=== PATIENT | male | born 1990 | race Caucasian/White ===

== ENCOUNTER 2017-08-23 11:49 | Emergency (ER) | payer OTHER ==
[~2017-08-23] VITALS: Ht 180.3 cm; Wt 97.6 kg
[~2017-08-23 11:49] MED LIST: CIPR-249 PO; FLAG250T PO; PEPT262S PO; TUMS500C PO
[2017-08-23 12:00] VITALS: BP 138/81
[2017-08-23] MEDS ORDERED: AMOX500C PO (12:45)
== END 2017-08-23 12:52 | disposition home or self-care (01) ==
LOC: M ED 11:49
DX: J02.0 Streptococcal pharyngitis (principal)